=== PATIENT | male | born 1965 | race Caucasian/White ===

== ENCOUNTER → 2016-08-28 | Outpatient (CLI) | payer OTHER ==
[~2016-08-28] MED LIST: ABIL2TAB2 PO; ASPI325T PO; CYMB30CA PO; CYMB60CA PO; DULO1CAP2 PO; DULO1CAP3 PO; GLIP10TA6 PO; HYDR50CA PO; LOVA20TA PO; METF1000 PO; METO25TA3 PO; MIRT30TA PO; MULTTAB23 PO; NOVORP2 SQ; QUET50XR PO; REME15TA PO; SUPETAB PO; TASI150C PO; TRAZ100T4 PO; TRAZ50TA12 PO; [UNRECOGNIZED DRUG - CODE] PO
[2016-08-28 08:40] LABS: HDL CHOLESTEROL 40.6 MG/DL (40.0-60.0); LDL CHOLESTEROL 145 MG/DL (0-99)
[2016-08-28 10:42] LABS: HEMOGLOBIN A1a 1.1 %; HEMOGLOBIN A1b 2.5 %; HEMOGLOBIN Ao 79.9 %; HEMOGLOBIN LA1C 2.9 %; HEMOGLOBIN P3 4.6 %
== END ==
LOC: CLAB 07:56
PROVIDERS: ATTEND Family Medicine
DX: E11.9 Type 2 diabetes mellitus without complications (principal); C92.10 Chronic myeloid leukemia, BCR/ABL-positive, not having achieved remission; G62.9 Polyneuropathy, unspecified
CPT/HCPCS: 36415; 80061; 83036

== ENCOUNTER → 2017-01-14 | Outpatient (CLI) | payer OTHER ==
[~2017-01-14] MED LIST changes: -ABIL2TAB2 PO; -DULO1CAP2 PO; -DULO1CAP3 PO; -NOVORP2 SQ; -REME15TA PO; -SUPETAB PO; -TRAZ100T4 PO
[2017-01-14 16:57] LABS: HEMOGLOBIN A1a 1.1 %; HEMOGLOBIN A1b 1.1 %; HEMOGLOBIN Ao 81.4 %; HEMOGLOBIN F 1.1 %; HEMOGLOBIN LA1C 3.2 %; HEMOGLOBIN P3 4.5 %
== END ==
LOC: CLAB 08:48
PROVIDERS: ATTEND Family Medicine
DX: E11.9 Type 2 diabetes mellitus without complications (principal)
CPT/HCPCS: 36415; 83036